=== PATIENT | female | born 2005 | race Caucasian/White ===

== ENCOUNTER 2024-10-24 07:58 | Emergency (ER) | payer OTHER ==
[~2024-10-24] VITALS: Ht 180.3 cm; Wt 61.0 kg
[2024-10-24 08:05] VITALS: TEMP 97.7
[2024-10-24 08:12] LABS: COVID AG,FIA SOURCE NASAL SWAB
[2024-10-24 08:21] LABS: PLATELET COUNT (AUTO) 238 K/uL (150-450); RED BLOOD CELL COUNT(AUTO) 4.22 MIL/uL (4.00-5.20); RED CELL DISTRIBUTION WIDTH 13.8 % (11.5-14.5); WHITE BLOOD COUNT (AUTO) 6.1 K/uL (4.5-11.0)
[2024-10-24 08:31] LABS: CALCIUM, TOTAL 9.4 mg/dL (8.8-10.5); CREATININE 0.73 mg/dL (0.60-1.30); GLOMERULAR FILTR. RATE CALC > 60 mL/min (>60); GLUCOSE,RANDOM 120 mg/dL (70-110); SODIUM SERUM 141 mmol/L (136-145); UREA NITROGEN, BLOOD 9 mg/dL (7-18)
[2024-10-24 08:41] LABS: APPEARANCE,URINE CLEAR (CLEAR); GLUCOSE, URINE (UA) NEGATIVE (NEGATIVE); LEUKOCYTE ESTERASE ,URINE MODERATE (NEGATIVE); NITRATE,URINE NEGATIVE (NEGATIVE); OCCULT BLOOD,URINE NEGATIVE (NEGATIVE); SPECIFIC GRAVITIY, URINE 1.007 (1.003-1.030)
[2024-10-24 08:42] LABS: SARS-COV2 (COVID) ANTIGEN,FIA Negative (Negative)
[2024-10-24 08:43] LABS: INFLUENZA TYPE A NEGATIVE FOR TYPE A (NEGATIVE); INFLUENZA TYPE B NEGATIVE FOR TYPE B (NEGATIVE)
[2024-10-24 08:46] LABS: HCG,QUANTITATIVE 1 mIU/mL (0-6)
[2024-10-24 08:48] LABS: SQUAMOUS EPITHELIAL CELL,UR Moderate /LPF (None Seen)
[2024-10-24] MEDS: ONDANSETRON HCL 4 MG/2 ML VIAL IVP ONE (09:11)
[2024-10-24] MEDS: SODIUM CHLORIDE 0.9% 1,000 ML IV ONE (09:13)
[2024-10-24] MEDS: POTASSIUM CHLORIDE 20 MEQ ER TABLET PO ONE (09:13)
[2024-10-24] MEDS: CefTRIAXone 1 GM/DEXTROSE 50 ML IV ONE (09:13)
[2024-10-24] MEDS: FLUCONAZOLE 150 MG TABLET PO ONE (10:02)
[2024-10-24] MEDS ORDERED: ONDA-104 PO (11:46)
[2024-10-24 11:47] VITALS: BP 120/80; PULSE 82; RESP 18; O2SAT 100
== END 2024-10-24 11:49 | disposition home or self-care (01) ==
LOC: EMS 08:02
DX: R53.1 Weakness (principal); R11.2 Nausea with vomiting, unspecified; R42 Dizziness and giddiness; F12.90 Cannabis use, unspecified, uncomplicated; F17.210 Nicotine dependence, cigarettes, uncomplicated; Z91.018 Allergy to other foods; Z20.822 Contact with and (suspected) exposure to COVID-19
CPT/HCPCS: 99284; 96365; 96375; 87426; 80048; 81001; 83690; 84702; 85025; 87086; 87804; 36415; J0696; J2405